=== PATIENT | male | born 1935 | race Caucasian/White ===

== ENCOUNTER → 2017-12-06 | Outpatient (CLI) | payer MEDICARE ==
[~2017-12-06] MED LIST: ASPI-496 PO; ATEN100T PO; CHOL100011 PO; FURO-93 PO; INSU100V5 SQ-INSULIN; INSU100V8 SQ; LISI-167 PO; ROSU5TAB PO
== END | disposition home or self-care (01) ==
LOC: CFH 07:50
PROVIDERS: ATTEND Nurse Practitioner Family
DX: J43.9 Emphysema, unspecified (principal)
CPT/HCPCS: 71046

== ENCOUNTER 2018-07-05 13:31 | Emergency (ER) | payer MEDICARE ==
[~2018-07-05] VITALS: Ht 182.9 cm; Wt 115.0 kg
[2018-07-05] MEDS ORDERED: MECLIZINE CHEWABLE 25 MG TAB PO ONE (14:30)
[2018-07-05] MEDS ORDERED: SODIUM CHLORIDE 0.9% 1,000ML IVBOLUS ONE (14:30)
[2018-07-05] MEDS ORDERED: SODIUM CHLORIDE FLUSH 10ML SYR IVF ONE (14:30)
[2018-07-05] MEDS ORDERED: MECLIZINE CHEWABLE 25 MG TAB ONE (14:33)
[2018-07-05 14:55] LABS: BASOPHILS # (AUTO) 0.06 x10^3/uL (0-0.1); BASOPHILS % (AUTO) 1 % (0-1); EOSINOPHILS % (AUTO) 4 % (1-7); LYMPHOCYTES # (AUTO) 1.61 x10^3/uL (1-3.4); LYMPHOCYTES % (AUTO) 22 % (22-44); MD NO; MEAN CORPUSCULAR HEMOGLOBIN 32.9 pg (27.5-34.5); MEAN CORPUSCULAR HGB CONC 33.5 g/dL (33.2-36.2); MEAN CORPUSCULAR VOLUME 98.1 fL (81-97); MEAN PLATELET VOLUME 8.7 fL (7.4-10.4); MONOCYTES # (AUTO) 0.43 x10^3/uL (0.2-0.8); MONOCYTES % (AUTO) 6 % (2-9); NEUTROPHILS # (AUTO) 5.01 x10^3/uL (1.8-6.8); NEUTROPHILS % (AUTO) 68 % (42-75); PLATELET COUNT 157 x10^3/uL (130-400); RED BLOOD COUNT 4.74 x10^6/uL (4.38-5.82); RED CELL DISTRIBUTION WIDTH 13.8 % (9.4-14.8)
[2018-07-05 15:31] LABS: ALBUMIN 3.5 g/dL (3.4-5.0); ANION GAP 6 mmol/L (5-15); CHLORIDE 111 mmol/L (98-107); CREATININE 1.66 mg/dL (0.7-1.3)
[2018-07-05 15:53] VITALS: BP 128/77
== END 2018-07-05 16:26 | disposition home or self-care (01) ==
LOC: ED 16:15
DX: H81.12 Benign paroxysmal vertigo, left ear (principal); I11.0 Hypertensive heart disease with heart failure; I50.9 Heart failure, unspecified; E78.00 Pure hypercholesterolemia, unspecified; E11.9 Type 2 diabetes mellitus without complications; J44.9 Chronic obstructive pulmonary disease, unspecified; Z87.891 Personal history of nicotine dependence
CPT/HCPCS: 36415; 70450; 80048; 82040; 85025; 93005; 96360; 99285; J7030